=== PATIENT | male | born 1945 | race Caucasian/White ===

== ENCOUNTER 2017-08-08 05:37 | Day surgery (SDC) | payer OTHER ==
[2017-08-08] MEDS ORDERED: CEFAZOLIN 1 GM INJ (07:00)
[2017-08-08] MEDS ORDERED: LIDOCAINE 2% (SDV) 5 ML INJ (07:00)
[2017-08-08] MEDS ORDERED: FENTAnyl 50 MCG/ML VIAL ×2 (07:34→08:13)
[2017-08-08] MEDS ORDERED: MIDAZOLAM 1 MG/ML 2 ML INJ (07:34)
[2017-08-08] MEDS ORDERED: PROPOFOL 20 ML ×2 (07:35→08:11)
[2017-08-08] MEDS ORDERED: SUCCINYLCHOLINE CHLORIDE 100 MG/5 ML SYG IV (08:11)
[2017-08-08] MEDS ORDERED: ONDANSETRON 4 MG INJ (08:12)
[2017-08-08] MEDS ORDERED: SUGAMMADEX SODIUM 200 MG/2 ML VIAL IV (08:12)
[2017-08-08] MEDS ORDERED: METOCLOPRAMIDE 10 MG INJ (08:12)
[2017-08-08] MEDS ORDERED: ROCURONIUM 50 MG INJ (08:12)
[2017-08-08] MEDS: BUPIVACAINE 0.25% (MPF) 30 ML INJ (08:21)
[2017-08-08] MEDS: LIDOCAINE 1%/EPI 30 ML INJ (08:21)
[2017-08-08] MEDS: THROMBIN 5000 UNIT VIAL (08:40)
[2017-08-08] MEDS: GELATIN SIZE 100 SPONGE (08:40)
[2017-08-08] MEDS: HEMOSTATIC MATRIX SYG ZFS (08:41)
[2017-08-08] MEDS: POLYMYXIN/BACITRACIN 1L IRRIG (08:41)
[2017-08-08] MEDS: BETAMET NA PHOS/AC(6 MG/ML) 5ML INJ (09:36)
[2017-08-08] MEDS ORDERED: ACETAMINOPHEN 1000MG/100ML IV 100 ML (09:40)
[2017-08-08] MEDS ORDERED: ONDANSETRON 4 MG INJ IV ×2 (10:00→10:30)
[2017-08-08] MEDS ORDERED: NACL 0.9% 3 ML SYG IV (10:00)
[2017-08-08] MEDS ORDERED: HYDROCODONE/APAP (5/325) TAB PO (10:00)
[2017-08-08] MEDS ORDERED: PROCHLORPERAZINE 10 MG TAB PO (10:00)
[2017-08-08] MEDS ORDERED: FENTAnyl 50 MCG/ML VIAL IV ×2 (10:30)
[2017-08-08] MEDS ORDERED: LABETALOL HCL 20MG INJ IV (10:30)
[2017-08-08] MEDS ORDERED: METOCLOPRAMIDE 10 MG INJ IV (10:30)
[2017-08-08] MEDS ORDERED: hydrALAzine 20 MG INJ IV (10:30)
[2017-08-08] MEDS: HYDROmorphONE (0.2 MG/ML) 10ML SYG IV ×2 (11:13→11:34)
[2017-08-08] MEDS: HYDROCODONE/APAP (5/325) TAB PO (12:40)
== END 2017-08-08 14:30 | disposition home or self-care (01) ==
LOC: SDS 05:37
DX: M51.16 Intervertebral disc disorders with radiculopathy, lumbar region (principal)
CPT/HCPCS: 63030; 71045; 72100; 97162